=== PATIENT | female | born 1945 | race Caucasian/White ===

== ENCOUNTER 2017-04-21 15:44 | Emergency (ER) | payer MEDICARE, OTHER ==
[~2017-04-21] VITALS: Ht 162.6 cm; Wt 77.1 kg
[2017-04-21 16:54] LABS: BASOPHILS ABSOLUTE AUTO 0.05 K/mm3 (0.00-0.23); BASOPHILS PERCENT AUTO 0 % (0-2); EOSINOPHILS ABSOLUTE AUTO 0.57 K/mm3 (0.00-0.68); EOSINOPHILS PERCENT AUTO 5 % (0-6); Hematocrit 43.9 % (33.0-51.0); Hemoglobin 14.6 g/dL (11.5-16.0); IMMATURE GRAN ABSOLUTE AUTO 0.03 K/mm3 (0.00-0.10); IMMATURE GRAN PERCENT AUTO 0 % (0-1); LYMPHOCYTES PERCENT AUTO 15 % (21-46); MONOCYTES ABSOLUTE AUTO 1.28 K/mm3 (0.16-1.47); MONOCYTES PERCENT AUTO 11 % (4-13); Mean Corpuscular HGB Conc 33.3 g/dL (31.5-36.5); Mean Corpuscular Volume 87 fL (80-100); Mean Platelet Volume 10.6 fL (9.1-12.4); NEUTROPHILS ABSOLUTE AUTO 8.08 K/mm3 (1.96-9.15); NEUTROPHILS PERCENT AUTO 69 % (41-73); Platelet Count 267 K/mm3 (150-400); RDW Coefficient Variation 13.2 % (11.7-14.2); RDW Standard Deviation 42.3 fL (35.1-46.3); Red Blood Cell Count 5.04 M/mm3 (3.80-5.20); White Blood Cell Count 11.81 K/mm3 (4.00-11.30)
[2017-04-21 17:20] LABS: Alanine Aminotransfer (ALT/SGP 28 U/L (12-78); Albumin, Blood 4.4 g/dL (3.4-5.0); Albumin/Globulin Ratio 1.2 (0.8-1.8); Alk Phos 57 U/L (50-136); Anion Gap 11 mmol/L (6-16); Aspartate Aminotrans (AST/SGOT 19 U/L (12-37); Bilirubin, Total 0.5 mg/dL (0.1-1.0); Blood Urea Nitrogen 19 mg/dL (8-24); Bun/Creatinine Ratio 21.4 (12.0-20.0); CO2, Blood 26 mmol/L (21-32); Calcium, Blood 11.4 mg/dL (8.5-10.1); Chloride, Blood 101 mmol/L (98-108); Creatinine, Blood 0.89 mg/dL (0.40-1.00); Globulin, Blood 3.7 g/dL (2.2-4.0); Glomerular Filtration Rate >60 (60-); Glucose, Blood 135 mg/dL (70-99); Potassium, Blood 4.5 mmol/L (3.5-5.5); Sodium, Blood 138 mmol/L (136-145); Total Protein, Blood 8.1 g/dL (6.4-8.2)
[2017-04-21 19:58] LABS: Source, Urine Clean Catch
[2017-04-21 20:08] LABS: Bilirubin, Urine Neg (Neg); Blood, Urine 1+ (Neg); Glucose Qualitative, Urine Neg (Neg); Ketones, Urine Neg (Neg); Leukocyte Esterase, Urine Neg (Neg); Nitrite, Urine Neg (Neg); Protein, Urine Neg (Neg); Urobilinogen, Urine NORM (Normal)
[2017-04-21 20:23] LABS: Appearance, Urine Clear (Clear); Color, Urine Yellow (P-Yellow)
[2017-04-21 20:24] LABS: Hyaline Casts 0-2 /lpf (0-2); Squamous Epithelial Cells Rare /hpf (Few); White Blood Cells, Urine 0-2 /hpf (0-5)
[2017-04-21 20:25] LABS: Bacteria Few /hpf
[2017-04-21] MEDS ORDERED: Percocet 5-3251 EACH PO (21:56)
[2017-04-21] MEDS ORDERED: LEVFLO500 PO (21:56)
[2017-05-18] MEDS ORDERED: Aspirin EC81 MG PO (15:11)
[2017-05-18] MEDS ORDERED: METF500C PO (15:12)
[2017-05-18] MEDS ORDERED: Lovastatin10 MG PO (15:13)
[2017-05-18] MEDS ORDERED: Flovent 110 MCG12 GM INH (15:13)
[2017-05-18] MEDS ORDERED: ALBU2.5V5 NEB (15:14)
[2017-05-18] MEDS ORDERED: LEVSOD100 PO (15:14)
[2017-05-18] MEDS ORDERED: CHOL10002 PO (15:15)
[2017-05-18] MEDS ORDERED: AZELASTINE (15:18)
[2017-05-18] MEDS ORDERED: Sudogest30 MG PO (15:23)
[2017-05-18] MEDS ORDERED: NASACORT10.8 ML (15:23)
[2017-05-18] MEDS ORDERED: Hair, Skin & N1 EACH PO (15:26)
[2017-05-18] MEDS ORDERED: BENADRYL25 MG PO (15:26)
[2017-05-18] MEDS ORDERED: Beta Carot25000 UNIT PO (15:26)
[2017-05-18] MEDS ORDERED: Fish Oil 10001000 MG PO (15:27)
[2017-05-18] MEDS ORDERED: GLUCOSAMINE-CH1 EAC3 PO (15:27)
[2017-05-18] MEDS ORDERED: CHROMIUM PIC1000 MCG PO (15:28)
[2017-05-18] MEDS ORDERED: NIAC500 PO (15:29)
[2017-05-18] MEDS ORDERED: L-Lysine500 M1 PO (15:29)
[2017-05-18] MEDS ORDERED: CALCIUM-VITAMI1 EACH PO (15:30)
[2017-05-18] MEDS ORDERED: Salmon Oil 1,01 EACH PO (15:30)
[2017-05-18] MEDS ORDERED: COD LIVER OIL1 EAC1 PO (15:31)
[2017-05-18] MEDS ORDERED: FLAX PO (15:31)
[2017-05-18] MEDS ORDERED: Magnesium200 MG PO (15:32)
[2017-05-18] MEDS ORDERED: Ester-C 500 MG1 EACH PO (15:32)
[2017-05-18] MEDS ORDERED: Super B-50 Com1 EAC1 PO (15:33)
[2017-05-18] MEDS ORDERED: Mucus Relief400 MG PO (15:34)
[2017-05-18] MEDS ORDERED: Robaxin-750750 MG PO (15:35)
[2017-05-18] MEDS ORDERED: ALEVE220 MG PO (15:35)
[2017-05-18] MEDS ORDERED: PRED20 PO (15:37)
== END 2017-04-21 22:18 | disposition home or self-care (01) ==
LOC: ER 15:44
PROVIDERS: Internal Medicine
DX: J18.9 Pneumonia, unspecified organism (principal); M54.6 Pain in thoracic spine; E11.9 Type 2 diabetes mellitus without complications; E78.00 Pure hypercholesterolemia, unspecified; Z88.5 Allergy status to narcotic agent; Z88.8 Allergy status to other drugs, medicaments and biological substances
CPT/HCPCS: 36415; 71046; 72070; 80053; 81001; 82330; 83690; 85025; 93005; 93010; 96374; 96375; 99283; J1170; J2405

== ENCOUNTER 2017-05-19 07:23 | Day surgery (SDC) | payer MEDICARE, OTHER ==
[~2017-05-19] VITALS: Ht 162.6 cm; Wt 76.7 kg
[~2017-05-19 07:23] MED LIST: ALBU2.5V5 NEB; ALEVE220 MG PO; AZELASTINE; Aspirin EC81 MG PO; BENADRYL25 MG PO; Beta Carot25000 UNIT PO; CALCIUM-VITAMI1 EACH PO; CHOL10002 PO; CHROMIUM PIC1000 MCG PO; COD LIVER OIL1 EAC1 PO; Ester-C 500 MG1 EACH PO; FLAX PO; Fish Oil 10001000 MG PO; Flovent 110 MCG12 GM INH; GLUCOSAMINE-CH1 EAC3 PO; Hair, Skin & N1 EACH PO; L-Lysine500 M1 PO; LEVFLO500 PO; LEVSOD100 PO; Lovastatin10 MG PO; METF500C PO; Magnesium200 MG PO; Mucus Relief400 MG PO; NASACORT10.8 ML; NIAC500 PO; PRED20 PO; Percocet 5-3251 EACH PO; Robaxin-750750 MG PO; Salmon Oil 1,01 EACH PO; Sudogest30 MG PO; Super B-50 Com1 EAC1 PO
== END 2017-05-19 22:37 | disposition home or self-care (01) ==
LOC: ORSCMMR 07:23 → ORD 08:30 → ORSCMMR 08:30
PROVIDERS: Internal Medicine Critical Care Medicine
PROC: 0B9J8ZX Drainage of Left Lower Lung Lobe, Via Natural or Artificial Opening Endoscopic, Diagnostic (ICD-10-PCS; principal; 2017-05-19 08:30)
DX: J98.11 Atelectasis (principal); R91.8 Other nonspecific abnormal finding of lung field; R05 Cough; G47.33 Obstructive sleep apnea (adult) (pediatric); J45.909 Unspecified asthma, uncomplicated; J45.901 Unspecified asthma with (acute) exacerbation; Z79.82 Long term (current) use of aspirin; Z79.899 Other long term (current) drug therapy
CPT/HCPCS: 82947; 87070; 87205; 88108; 88312; J2250; J3010; J7120

== ENCOUNTER → 2018-04-28 | Outpatient (CLI) | payer MEDICARE, OTHER ==
[2018-04-30 14:08] LABS: HPV 16 Negative (Negative); HPV 18 Negative (Negative); HPV OTHER HR TYPES Negative (Negative)
== END | disposition home or self-care (01) ==
LOC: LAB 17:50 → LAB SHORT 17:50
PROVIDERS: Nurse Practitioner Women's Health
DX: Z12.72 Encounter for screening for malignant neoplasm of vagina (principal)
CPT/HCPCS: 87624; G0123

== ENCOUNTER → 2019-02-03 | Outpatient (CLI) | payer MEDICARE, OTHER | END | disposition home or self-care (01) | LOC: LAB EV 18:46 → LAB SHORT 18:46 | DX: R30.9 Painful micturition, unspecified (principal); R30.0 Dysuria | CPT/HCPCS: 87086 ==

== ENCOUNTER → 2019-04-22 | Outpatient (CLI) | payer MEDICARE, OTHER | END | disposition home or self-care (01) | LOC: LAB 18:01 → LAB SHORT 18:01 | DX: R05 Cough (principal) | CPT/HCPCS: 87070; 87205 ==

== ENCOUNTER → 2020-04-09 | Outpatient (CLI) | payer MEDICARE, OTHER | END | disposition home or self-care (01) | LOC: LAB SHORT 15:22 → PLD 15:22 | DX: L90.5 Scar conditions and fibrosis of skin (principal) | CPT/HCPCS: 88305; 88311 ==

== ENCOUNTER → 2020-04-30 | Outpatient (CLI) | payer MEDICARE, OTHER | END | disposition home or self-care (01) | LOC: PLD 09:00 → LAB SHORT 09:00 | DX: Z48.89 Encounter for other specified surgical aftercare (principal); L97.529 Non-pressure chronic ulcer of other part of left foot with unspecified severity | CPT/HCPCS: 87070; 87205 ==

== ENCOUNTER → 2020-07-10 | Outpatient (CLI) | payer MEDICARE, OTHER | END | disposition home or self-care (01) | LOC: LAB SHORT 14:25 → LAB 14:25 | DX: D48.5 Neoplasm of uncertain behavior of skin (principal) | CPT/HCPCS: 88305 ==

== ENCOUNTER → 2022-01-30 | Outpatient (CLI) | payer MEDICARE, OTHER | END | disposition home or self-care (01) | LOC: LAB SHORT 15:15 | DX: C44.41 Basal cell carcinoma of skin of scalp and neck (principal) | CPT/HCPCS: 88305 ==

== ENCOUNTER → 2022-04-28 | Outpatient (CLI) | payer MEDICARE, OTHER | END | disposition home or self-care (01) | LOC: LAB SHORT 11:04 → PLD 11:04 | DX: L98.499 Non-pressure chronic ulcer of skin of other sites with unspecified severity (principal) | CPT/HCPCS: 88305 ==

== ENCOUNTER → 2022-10-03 | Outpatient (CLI) | payer MEDICARE, OTHER | LOC: LAB 15:20 → LAB SHORT 15:20 | DX: J02.9 Acute pharyngitis, unspecified (principal) | CPT/HCPCS: 87081 ==

== ENCOUNTER → 2023-10-16 | Outpatient (CLI) | payer MEDICARE, OTHER | END | disposition home or self-care (01) | LOC: LAB 11:44 → LAB SHORT 11:44 | DX: J44.1 Chronic obstructive pulmonary disease with (acute) exacerbation (principal) | CPT/HCPCS: 87070; 87205 ==

== ENCOUNTER → 2024-06-27 | Outpatient (CLI) | payer MEDICARE, OTHER ==
[2024-06-27 18:03] LABS: Very Low Density Lipoprot Chol 38 mg/dL (6-32)
[2024-06-27 18:05] LABS: CHOL/HDL RATIO 2.4; Cholesterol 107 mg/dL (50-200); HDL Cholesterol 44 mg/dL (>39); LDL/HDL RATIO 0.6; Low Density Lipoprotein Chol 25 mg/dL (0-110); Triglycerides 190 mg/dL (30-160)
== END ==
LOC: LAB 11:55 → LAB SHORT 11:55
PROVIDERS: Family Medicine
DX: E78.5 Hyperlipidemia, unspecified (principal); E11.40 Type 2 diabetes mellitus with diabetic neuropathy, unspecified
CPT/HCPCS: 80061; 83036

== ENCOUNTER → 2024-07-05 | Outpatient (CLI) | payer MEDICARE, OTHER ==
[2024-07-05 21:11] LABS: Microalbumin, Random Urine 10.4 mg/L (0.000-20.000)
== END | disposition home or self-care (01) ==
LOC: LAB 18:59 → LAB SHORT 18:59
PROVIDERS: Family Medicine
DX: E11.40 Type 2 diabetes mellitus with diabetic neuropathy, unspecified (principal)
CPT/HCPCS: 82043; 82570

== ENCOUNTER 2024-12-29 10:27 | Day surgery (SDC) | payer MEDICARE, OTHER ==
[~2024-12-29] VITALS: Ht 162.6 cm; Wt 81.5 kg
[~2024-12-29 10:27] MED LIST changes: +Balanced Salt Epinephrine Irrigation Solution 500 mL IR SCH; +Moxifloxacin HCL 0.5 MG/0.1 ML 0.4MLSYR RIGHTEYE SCH; +Ondansetron 4 MG SoluTab MM PRN; +PHENYLEPHRINE\\TROPICAMIDE\\TETRACAINE OPHTHALMIC DILATING SOLN RIGHTEYE PRN; +Povidone-Iodine 450 DROP/30 ML Solution ONE; +Povidone-Iodine 450 DROP/30 ML Solution RIGHTEYE SCH; +Tetracaine HCl/Pf 0.5% Opth Soln 4 ml ONE; +Triamcinolone Inj Susp 40 MG / ML 1ML Vial INJ SCH; +Triamcinolone Inj Susp 40 MG / ML 1ML Vial ONE; +diazePAM 2 MG,diazePAM 5 MG PO SCH
--- NOTE | 2024-12-29 11:13 | NUR ---
12/29/24 1113 Delia Lepe 1101 BP:126/70 HR:60 O2:97% RESP:16
[2024-12-29 11:52] VITALS: BP 111/50
== END 2024-12-29 12:00 | disposition home or self-care (01) ==
LOC: ORSCSDS 10:27
PROVIDERS: Ophthalmology
PROC: 08RJ3JZ Replacement of Right Lens with Synthetic Substitute, Percutaneous Approach (ICD-10-PCS; principal; 2024-12-29 11:30)
DX: E11.36 Type 2 diabetes mellitus with diabetic cataract (principal); H25.811 Combined forms of age-related cataract, right eye; I10 Essential (primary) hypertension; E78.5 Hyperlipidemia, unspecified; E03.9 Hypothyroidism, unspecified; J45.909 Unspecified asthma, uncomplicated; G47.33 Obstructive sleep apnea (adult) (pediatric); I73.9 Peripheral vascular disease, unspecified; Z79.82 Long term (current) use of aspirin; Z79.84 Long term (current) use of oral hypoglycemic drugs; Z79.899 Other long term (current) drug therapy
CPT/HCPCS: A9270; J3301; V2632

== ENCOUNTER 2025-01-05 10:00 | Day surgery (SDC) | payer MEDICARE, OTHER | END 2025-01-05 12:35 | disposition home or self-care (01) | LOC: ORSCSDS 10:00 | PROC: 08RK3JZ Replacement of Left Lens with Synthetic Substitute, Percutaneous Approach (ICD-10-PCS; principal; 2025-01-05) | DX: E11.36 Type 2 diabetes mellitus with diabetic cataract (principal); H25.812 Combined forms of age-related cataract, left eye; Z96.1 Presence of intraocular lens; J45.909 Unspecified asthma, uncomplicated; I10 Essential (primary) hypertension; E78.5 Hyperlipidemia, unspecified; E03.9 Hypothyroidism, unspecified; G47.33 Obstructive sleep apnea (adult) (pediatric); I73.9 Peripheral vascular disease, unspecified; Z79.84 Long term (current) use of oral hypoglycemic drugs; Z79.82 Long term (current) use of aspirin; Z79.899 Other long term (current) drug therapy ==